=== PATIENT | female | born 1960 | race Caucasian/White ===

== ENCOUNTER 2021-08-26 12:05 | Emergency (ER) | payer MEDICAID ==
[~2021-08-26] VITALS: Ht 170.2 cm; Wt 56.8 kg
[2021-08-26] MEDS ORDERED: ceFAZolin/D5W- 1GM premix 50 ML IV STA (12:17)
[2021-08-26] MEDS ORDERED: fentaNYL/PF 50MCG/1 ML 2ML syringe IV ONE (12:20)
[2021-08-26] MEDS ORDERED: normal saline 1000ML IV soln IVB ONE (12:20)
[2021-08-26] MEDS ORDERED: LIDOcaine 1% W/epiNEPHrine 1:200,000 10ml vial IJ ONE (12:25)
--- NOTE | 2021-08-26 12:30 | NUR ---
Wound cleaned with NS. Bleeding is controlled. Cleaned dried blood on legs and danya area.
[2021-08-26] MEDS ORDERED: LIDOCAINE 2% w/EPI 1:100:000 30mL injection MDV**cath lab 1 only SQ ONE (12:35)
--- NOTE | 2021-08-26 14:02 | NUR ---
Providers at the bedside to suture wound.
[2021-08-26] MEDS ORDERED: CEPH-585 PO (14:08)
[2021-08-26 14:26] VITALS: BP 116/67
--- NOTE | 2021-08-26 14:45 | NUR ---
Providers placed internal sutures and 21 external nereyda. Area cleaned with bath wipes and betadine. Dressed with triple abx ointment, abd pad, and covered with a long padded dressing.
--- NOTE | 2021-08-26 15:10 | NUR ---
Pt given and understands d/c instructions. IV d/c'd, catheter was intact. Escorted out of the ER via wheelchair.
== END 2021-08-26 15:10 | disposition home or self-care (01) ==
LOC: ER 12:06
DX: S31.821A Laceration without foreign body of left buttock, initial encounter (principal); S31.822A Laceration with foreign body of left buttock, initial encounter; G89.29 Other chronic pain; F12.90 Cannabis use, unspecified, uncomplicated; Z98.890 Other specified postprocedural states; Z88.0 Allergy status to penicillin; Z79.2 Long term (current) use of antibiotics; W22.8XXA Striking against or struck by other objects, initial encounter; Y93.K1 Activity, walking an animal; Y92.89 Other specified places as the place of occurrence of the external cause; Y99.8 Other external cause status
CPT/HCPCS: 12035; 96365; 96375; 99284; J0690; J3010; J7030

== ENCOUNTER 2021-09-24 21:49 | Emergency (ER) | payer MEDICAID ==
[~2021-09-24] VITALS: Ht 170.2 cm; Wt 57.7 kg
[~2021-09-24 21:49] MED LIST: CEPH-585 PO
[2021-09-24 21:52] VITALS: BP 141/81
== END 2021-09-25 02:22 | disposition home or self-care (01) ==
LOC: ER 21:49
DX: Z48.02 Encounter for removal of sutures (principal); Z53.21 Procedure and treatment not carried out due to patient leaving prior to being seen by health care provider

== ENCOUNTER 2022-12-16 16:08 | Emergency (ER) | payer MEDICAID ==
[~2022-12-16] VITALS: Ht 170.2 cm; Wt 47.4 kg
[2022-12-16 16:16] VITALS: BP 164/92; PULSE 107; RESP 16; TEMP 97.7; O2SAT 96
== END 2022-12-17 00:51 | disposition left against medical advice (07) ==
LOC: ER 16:09
DX: M79.602 Pain in left arm (principal); Z53.21 Procedure and treatment not carried out due to patient leaving prior to being seen by health care provider
CPT/HCPCS: 73090; 99281